=== PATIENT | female | born 1980 | race Caucasian/White ===

== ENCOUNTER 2018-11-29 09:33 | Emergency (ER) | payer BC ==
[2018-11-29] MEDS ORDERED: Ketorolac 60 MG/2 ML SDV IM ONE (10:14)
--- NOTE | 2018-11-29 10:33 | EDM.PDOC ---
ED HPI GENERAL MEDICAL PROBLEM - General Chief Complaint: Upper Extremity Injury/Pain Stated Complaint: RIGHT SHOULDER PAIN Time Seen by Provider: 11/29/18 10:09 Source of Information: Reports: Patient History Limitations: Reports: No Limitations - History of Present Illness INITIAL COMMENTS - FREE TEXT/NARRATIVE: HISTORY AND PHYSICAL: History of present illness: Patient is a 38-year-old female who presents to the emergency room with complaints of right shoulder pain. She states that she tried to show her son had to use the monkey bars and shortly afterward she started having pain around the rotator cuff of the right arm. She states that she has had pain there intermittently for several months. She denies any injury, trauma or falls. Patient reports that she did call the orthopedic clinic to get an appointment but was unable to be seen until 12/08/18. She is here in hopes of getting an MRI of the shoulder. Patient has a secondary complaint of a small superficial abscess on the right breast. This is at the 8 o'clock position proximally 2 fingerbreadths away from the area. There is no erythema although does appear to have a pustular center. No other lesions or masses noted. Breasts are symmetrical with no dimpling or puckering. She denies any fever, chills, chest pain, shortness of breath or cough. She denies any GI or symptoms. She has been eating and drinking appropriately Review of systems: As per history of present illness and below otherwise all systems reviewed and negative. Past medical history: As per history of present illness and as reviewed below otherwise noncontributory. Surgical history: As per history of present illness and as reviewed below otherwise noncontributory. Social history: See social history for further information Family history: As per history of present illness and as reviewed below otherwise noncontributory. Physical exam: General: Well-developed and well nourished 38-year-old female. Alert and oriented. Nontoxic appearing and in no acute distress. HEENT: Atraumatic, normocephalic, pupils equal and reactive bilaterally, negative for conjunctival pallor or scleral icterus, mucous membranes moist, TMs normal bilaterally, throat clear, neck supple, nontender, trachea midline. No drooling or trismus noted. No meningeal signs. No hot potato voice noted. Lungs: Clear to auscultation, breath sounds equal bilaterally, chest nontender. Heart: S1S2, regular rate and rhythm without overt murmur Abdomen: Soft, nondistended, nontender. Negative for masses or hepatosplenomegaly. Negative for costovertebral tenderness. Pelvis: Stable nontender. Genitourinary: Deferred. Rectal: Deferred. Skin: One centimeter circular lump noted to the right breast at the 8 o'clock position, approximately 2 fingerbreadths away from the area lab. There is no erythema. This is fluctuant with a pustular center. Otherwise skin is intact, warm, dry. No lesions or rashes noted. Extremities: Full range of motion without difficulty or deficits. Denies any numbness or tingling of the upper or lower extremities. Strong radial pulse. Cap refill less than 3 seconds. Neurovascular unremarkable. Neuro: Awake, alert, oriented. Cranial nerves II through XII unremarkable. Cerebellum unremarkable. Motor and sensory unremarkable throughout. Exam nonfocal. Notes: Patient is aware of the limitations that we have with imaging through the emergency room. I will give her an x-ray at this time. She states she'll follow- up with or so for further imaging if needed. Patient placed in a sling. Supportive care measures were reviewed and discussed. Voices understanding and is agreeable to plan of care. Denies any further questions or concerns at this time. Diagnostics: Xray Therapeutics: Toradol Prescription: Diclofenac Impression: Abscess, right breast Right Shoulder Injury Plan: 1. Take the antibiotic as prescribed. If the area in question does not resolve please follow-up with your FENCE MACHINE OPERATOR as we discussed. 2. Tylenol as needed for pain. Diclofenac is an anti-inflammatory such take any additional NSAID so using this medication. Please take with food. Keep your appointment you have with the orthopedic clinic on 12/08/18. You may use a sling for comfort. Rest and ice the area for comfort as well. 3. Please follow-up with the providers as we discussed. Return to the ED as needed and as discussed. Definitive disposition and diagnosis as appropriate pending reevaluation and review of above. - Related Data Allergies Allergy/AdvReac Type Severity Reaction Status Date / Time No Known Allergies Allergy Verified 11/29/18 09:47 Home Meds: Home Meds Citalopram [Citalopram HBr] 10 mg PO DAILY 06/19/14 [History] Acetaminophen/HYDROcodone [Winlock 325-5 MG] 1 - 2 tab PO Q4H PRN #60 tab [Rx] Past Medical History HEENT History: Reports: None Cardiovascular History: Reports: None Respiratory History: Reports: None Gastrointestinal History: Reports: None Genitourinary History: Reports: None Other FENCE MACHINE OPERATOR History: C section Musculoskeletal History: Reports: None Neurological History: Reports: None Psychiatric History: Reports: None Endocrine/Metabolic History: Reports: None Hematologic History: Reports: None Immunologic History: Reports: None Oncologic (Cancer) History: Reports: None Dermatologic History: Reports: None - Infectious Disease History Infectious Disease History: Reports: None - Past Surgical History Head Surgeries/Procedures: Reports: None Female Surgical History: Reports: Section Social & Family History - Tobacco Use Smoking Status *Q: Never Smoker Second Hand Smoke Exposure: No - Caffeine Use Caffeine Use: Reports: Coffee - Alcohol Use Days Per Week of Alcohol Use: 2 Number of Drinks Per Day: 2 Total Drinks Per Week: 4 - Recreational Drug Use Recreational Drug Use: No Review of Systems - Review of Systems Review Of Systems: ROS reveals no pertinent complaints other than HPI. ED EXAM, GENERAL - Physical Exam Exam: See Below (See dictation) Course - Vital Signs Last Recorded V/S: Last Vital Signs Temp 97.2 F 11/29/18 09:41 Pulse 70 11/29/18 09:41 Resp 18 11/29/18 09:41 BP 142/85 H 11/29/18 09:41 Pulse Ox 96 11/29/18 09:41 - Orders/Labs/Meds Orders: Active Orders 24 hr Category Date Time Status Shoulder Comp Rt [CR] Stat Exams 11/29/18 10:15 Ordered DME for Discharge [COMM] Stat Oth 11/29/18 10:15 Ordered Meds: Medications Discontinued Medications Generic Name Dose Route Start Last Admin Trade Name Freq PRN Reason Stop Dose Admin Ketorolac Tromethamine 60 mg 11/29/18 10:14 Toradol IM 11/29/18 10:15 ONETIME ONE Departure - Departure Time of Disposition: 10:33 Disposition: Home, Self-Care 01 Clinical Impression: Abscess Right shoulder injury Qualifiers: Encounter type: initial encounter Qualified Code(s): S49.91XA - Unspecified injury of right shoulder and upper arm, initial encounter - Discharge Information Instructions: Skin Abscess, [id number] Referrals: Isabel Miranda NP [Primary Care Provider] - Additional Instructions: The following information is given to patients seen in the emergency department who are being discharged to home. This information is to outline your options for follow-up care. We provide all patients seen in our emergency department with a follow-up referral. The need for follow-up, as well as the timing and circumstances, are variable depending upon the specifics of your emergency department visit. If you don't have a primary care physician on staff, we will provide you with a referral. We always advise you to contact your personal physician following an emergency department visit to inform them of the circumstance of the visit and for follow-up with them and/or the need for any referrals to a consulting specialist. The emergency department will also refer you to a specialist when appropriate. This referral assures that you have the opportunity for follow-up care with a specialist. All of these measure are taken in an effort to provide you with optimal care, which includes your follow-up. Under all circumstances we always encourage you to contact your private physician who remains a resource for coordinating your care. When calling for follow-up care, please make the office aware that this follow-up is from your recent emergency room visit. If for any reason you are refused follow-up, please contact the [facility] Emergency Department at and asked to speak to the emergency department charge nurse. [facility] [address] [place] [id number] [address] [facility] [address] [place] [address], [address] [place] [address] 1. Take the antibiotic as prescribed. If the area in question does not resolve please follow-up with your FENCE MACHINE OPERATOR as we discussed. 2. Tylenol as needed for pain. Diclofenac is an anti-inflammatory such take any additional NSAID so using this medication. Please take with food. Keep your appointment you have with the orthopedic clinic on 12/08/18. You may use a sling for comfort. Rest and ice the area for comfort as well. 3. Please follow-up with the providers as we discussed. Return to the ED as needed and as discussed. - My Orders Last 24 Hours: My Active Orders 11/29/18 10:15 Shoulder Comp Rt [CR] Stat DME for Discharge [COMM] Stat - Assessment/Plan Last 24 Hours: My Active Orders 11/29/18 10:15 Shoulder Comp Rt [CR] Stat DME for Discharge [COMM] Stat
--- NOTE | 2018-11-29 11:00 | CR ---
EXAMINATION: Right shoulder HISTORY: Pain COMPARISON: None TECHNIQUE: 3 views FINDINGS/IMPRESSION: There is no acute osseous abnormality, dislocation, or fracture. Bone mineralization and joint spaces are preserved.
== END 2018-11-29 11:17 | disposition home or self-care (01) ==
LOC: MW.ED 09:33
DX: S49.91XA Unspecified injury of right shoulder and upper arm, initial encounter (principal); N61.1 Abscess of the breast and nipple; X50.1XXA Overexertion from prolonged static or awkward postures, initial encounter
CPT/HCPCS: 73030; 96372; 99283; J1885

== ENCOUNTER 2020-07-20 09:56 | Emergency (ER) | payer BC ==
[2020-07-20] MEDS ORDERED: predniSONE 20 MG Tab PO STA (10:05)
--- NOTE | 2020-07-20 10:11 | EDM.PDOC ---
ED HPI GENERAL MEDICAL PROBLEM - General Chief Complaint: Neuro Symptoms/Deficits Stated Complaint: Gifford's Palsy Time Seen by Provider: 07/20/20 10:04 Source of Information: Reports: Patient History Limitations: Reports: No Limitations - History of Present Illness INITIAL COMMENTS - FREE TEXT/NARRATIVE: History of present illness: [Patient is 40-year-old female comes to the ED with some left-sided paresthesias and numbness and weakness. She has a history of previous Gifford's palsy, she states it feels similar to that episode which occurred when she was . She states that she was tested for Covid a couple days ago because she was having some upper respiratory symptoms and she is still awaiting the results of that test. She denies any cardiac or lung problems. She denies any history of stroke, clotting disorders, recent trauma, blurry vision, headache. Denies any neck stiffness or fever. Denies any other focal neurological deficit. States it feels like the left side of her tongue is also somewhat tingly. ] Review of systems: As per history of present illness and below otherwise all systems reviewed and negative. Past medical history: As per history of present illness and as reviewed below otherwise noncontributory. Surgical history: As per history of present illness and as reviewed below otherwise noncontributory. Social history: No reported history of drug or alcohol abuse. Family history: As per history of present illness and as reviewed below otherwise noncontributory. Physical exam: General: Awake, alert, no acute distress, A&O X3. HEENT: Atraumatic, normocephalic, pupils reactive, negative for conjunctival pallor or scleral icterus, mucous membranes moist, throat clear, neck supple, nontender, trachea midline. Lungs: Clear to auscultation, breath sounds equal bilaterally, chest nontender. Heart: RRR, normal S1S2, no JVD. Abdomen: Soft, nondistended, nontender. Negative for masses or hepatosplenomegaly. Negative for costovertebral tenderness. Pelvis: Stable nontender. Genitourinary: Deferred. Rectal: Deferred. Extremities: Atraumatic, no edema, Neurovascular unremarkable. Neuro: There is some mild flattening of the left nasal labial fold and slightly diminished muscular movement on left face compared to right. consistent with a mild/incomplete gifford's palsy. otherwise, remainder of CN2-12 intact. no other focal neuro deficits. Diagnostics: [] Therapeutics: [] Impression: [] Plan: [] Definitive disposition and diagnosis as appropriate pending reevaluation and review of above. - Related Data Allergies Allergy/AdvReac Type Severity Reaction Status Date / Time No Known Allergies Allergy Verified 07/20/20 10:06 Home Meds: Home Meds Citalopram [Citalopram HBr] 10 mg PO DAILY 06/19/14 [History] methylPREDNISolone [Medrol Dose Pack] 84 mg PO ASDIRECTED #1 dospk 07/20/20 [Rx] predniSONE [Prednisone] 50 mg PO DAILY #5 tablet 07/20/20 [Rx] Past Medical History HEENT History: Reports: None Cardiovascular History: Reports: None Respiratory History: Reports: None Gastrointestinal History: Reports: None Genitourinary History: Reports: None Other PAN SHOVER History: C section Musculoskeletal History: Reports: None Neurological History: Reports: None Psychiatric History: Reports: None Endocrine/Metabolic History: Reports: None Hematologic History: Reports: None Immunologic History: Reports: None Oncologic (Cancer) History: Reports: None Dermatologic History: Reports: None - Infectious Disease History Infectious Disease History: Reports: None - Past Surgical History Head Surgeries/Procedures: Reports: None Female Surgical History: Reports: Section Social & Family History - Caffeine Use Caffeine Use: Reports: Coffee ED ROS GENERAL - Review of Systems Review Of Systems: Comprehensive ROS is negative, except as noted in HPI. ED EXAM, NEURO - Physical Exam Exam: See Below (see h and p) Course - Vital Signs Text/Narrative:: Symptoms appear to be consistent with mild Gifford's palsy. No other neurological deficit. No indication for CT scan of the brain given my physical exam findings. Return precautions provided otherwise patient is well-appearing and stable at time of discharge with prescription sent for steroid and taper. Encouraged to continue to isolate at home until she has the results of her previous Covid swab known. Patient is agreeable to this plan and stable at discharge. Last Recorded V/S: Last Vital Signs Temp 36.3 C 07/20/20 10:07 Pulse 77 07/20/20 10:07 Resp 16 07/20/20 10:07 BP 152/95 H 07/20/20 10:07 Pulse Ox 96 07/20/20 10:07 - Orders/Labs/Meds Meds: Medications Discontinued Medications Generic Name Dose Route Start Last Admin Trade Name Filipe PRWild Reason Stop Dose Admin Prednisone 60 mg 07/20/20 10:05 07/20/20 10:15 Prednisone PO 07/20/20 10:06 60 mg ONETIME STA Administration Departure - Departure Time of Disposition: 10:16 Disposition: Home, Self-Care 01 Condition: Good Clinical Impression: Gifford's palsy - Discharge Information Prescriptions: methylPREDNISolone [Medrol Dose Pack] 84 mg PO ASDIRECTED #1 dospk predniSONE [Prednisone] 50 mg PO DAILY #5 tablet Instructions: Gifford Palsy, Adult Referrals: Zehra Saleem MD [Primary Care Provider] - Forms: ED Department Discharge Sepsis Event Note (ED) - Focused Exam Vital Signs: Vital Signs Temp Pulse Resp BP Pulse Ox 07/20/20 10:07 36.3 C 77 16 152/95 H 96
== END 2020-07-20 10:45 | disposition home or self-care (01) ==
LOC: MW.ED 09:56
DX: G51.0 Bell's palsy (principal); Z79.899 Other long term (current) drug therapy
CPT/HCPCS: 99283; A9270